=== PATIENT | female | born 1945 | race Caucasian/White ===

== ENCOUNTER 2021-09-06 12:46 | Emergency (ER) | payer OTHER, MEDICARE ==
[2021-09-06 13:01] LABS: HEMOGLOBIN 12.4 gm/dl (12.3-15.3); RED BLOOD COUNT 4.19 M/UL (4.00-5.10); WHITE BLOOD COUNT 8.4 K/UL (4.5-11.0)
[2021-09-06 13:20] LABS: BUN/CREATININE RATIO 29 (0-10)
[2021-09-06] MEDS ORDERED: COLCHICINE0.6 MG PO (16:13)
[2021-09-06] MEDS ORDERED: CRESTOR20 MG PO (16:14)
[2021-09-06] MEDS ORDERED: TOPIRAMATE100 MG PO (16:14)
[2021-09-06] MEDS ORDERED: FUROSEMIDE20 MG PO (16:14)
[2021-09-06] MEDS ORDERED: PAROXETINE HCL40 MG PO (16:16)
[2021-09-06] MEDS ORDERED: ESOMEPRAZOLE MA40 MG PO (16:17)
[2021-09-06] MEDS ORDERED: AZELASTINE137 MCG/0. (16:34)
[2021-09-06] MEDS ORDERED: XIIDRA 5% EYE DROPS OU (16:36)
== END 2021-09-06 17:58 | disposition short-term general hospital (02) ==
LOC: ER1 12:46 → CDU 14:41 → ER1 17:58
PROVIDERS: Emergency Medicine
DX: S22.41XA Multiple fractures of ribs, right side, initial encounter for closed fracture (principal); S32.592A Other specified fracture of left pubis, initial encounter for closed fracture; S32.591A Other specified fracture of right pubis, initial encounter for closed fracture; S32.501A Unspecified fracture of right pubis, initial encounter for closed fracture; S32.10XA Unspecified fracture of sacrum, initial encounter for closed fracture; V49.40XA Driver injured in collision with unspecified motor vehicles in traffic accident, initial encounter; Y92.410 Unspecified street and highway as the place of occurrence of the external cause
CPT/HCPCS: 70450; 71045; 71260; 72125; 72170; 80053; 83605; 85025; 85610; 85730; 86850; 86900; 86901; 93005; 96374; 96375; 96376; 99285; J1170; J2405; Q9967